=== PATIENT | male | born 1990 | race Caucasian/White ===

== ENCOUNTER 2017-05-18 21:10 | Emergency (ER) | payer BC ==
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
== END 2017-05-18 22:03 | disposition home or self-care (01) ==
LOC: MW.ED 21:10
DX: K04.7 Periapical abscess without sinus (principal)
CPT/HCPCS: 99282

== ENCOUNTER 2019-05-05 07:32 | Emergency (ER) | payer BC ==
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
== END 2019-05-05 07:40 | disposition home or self-care (01) ==
LOC: MW.ED 07:32
DX: J02.9 Acute pharyngitis, unspecified (principal); F17.210 Nicotine dependence, cigarettes, uncomplicated
CPT/HCPCS: 99282